=== PATIENT | male | born 1965 | race Asian ===

== ENCOUNTER → 2017-08-02 | Outpatient (REF) ==
[2017-08-02 19:42] LABS: BF MONONUCLEAR CELL % 18.3 % (0-0); BF POLYMORPHONUCLEAR CELL % 81.7 % (0-0); RBC BODY FLUID < 2 10^3/uL (<2)
[2017-08-02 19:51] LABS: BF DIFF IF INDICATED? YES (NO); SYNOVIAL FLUID COLOR YELLOW (YELLOW); WBC BODY FLUID 28725 /uL (0-10)
[2017-08-02 19:52] LABS: CRYSTALS, BODY FLUID URIC ACID (NONE SEEN)
== END ==
LOC: M LAB REF 17:04
PROVIDERS: ATTEND Internal Medicine
DX: M10.9 Gout, unspecified (principal)